=== PATIENT | male | born 1990 | race Two or more races ===

== ENCOUNTER 2022-02-07 23:34 | Emergency (ER) | payer OTHER ==
[~2022-02-07] VITALS: Ht 195.6 cm; Wt 68.0 kg
[2022-02-08] MEDS ORDERED: CEPHALEXIN500 MG PO (02:40)
== END 2022-02-08 02:44 ==
LOC: ER 23:34
DX: S81.812A Laceration without foreign body, left lower leg, initial encounter (principal); W25.XXXA Contact with sharp glass, initial encounter; Y93.K1 Activity, walking an animal; Y92.832 Beach as the place of occurrence of the external cause; Y99.9 Unspecified external cause status